=== PATIENT | female | born 1970 | race Caucasian/White ===

== ENCOUNTER 2017-01-02 08:55 | Emergency (ER) | payer OTHER ==
--- NOTE | 2017-01-02 10:34 | DIAGNOSTIC IMAGING REPORT ---
PROCEDURE: CT ABD/PELVIS WITH CONTRAST CLINICAL INDICATION: Right-sided abdominal pain, initial encounter TECHNIQUE: 100 ml of Isovue 300 were injected intravenously and axial images were obtained of the entire abdomen and pelvis with sagittal and coronal reformations. COMPARISON: CT abdomen/pelvis 07/30/2016. FINDINGS: ABDOMEN: Lung base are clear. Heart size is normal. Stable 6 mm hepatic cyst. Gallbladder, pancreas, spleen and right adrenal gland are normal. Stable 1.2 cm left adrenal nodule. Minor atherosclerosis of the aorta. Nonspecific bowel gas pattern. PELVIS: Short normal appendix versus appendiceal stump. Uterus, adnexa and bladder are normal. Trace free fluid the pelvis. Mild degenerative changes of the spine. IMPRESSION: 1. Stable 1.2 cm left adrenal nodule 2. Trace free fluid in the pelvis 3. Results discussed with Dr. Angelo All CT scans at this facility use dose modulation, iterative reconstruction, and/or weight-based dosing when appropriate to reduce radiation dose to as low as reasonably achievable.
--- NOTE | 2017-01-02 12:07 | ED ORDER SUMMARY ---
..... Patient: CYNTHIA BOOGIE OrderSheet [facility] VisitID: [id number] [address] [place] [address] 46y, F Registration Date/Time: 01/02/2017 ORDER SHEET Weight: 74.8 kg (stated) Allergies: Benadryl, Codeine, Toradol, Reglan (gets more nauseated) GENERAL ORDERS: UA-Culture if indicated Urgent (09:01/02/2017 SStone R.N. per protocol) (9:12 SStone R.N.) CT Abd/Pel w Cont (No) (N/A) Urgent (01/02/2017 Tutu BECKMAN) (Ack 9:29 LNations ER Tech1) (10:15 MCook R.N.) CBC w Diff Urgent (:01/02/2017 Tutu BECKMAN) (Ack 9:29 LNations ER Tech1) (9:36 SStone R.N.) CMP Urgent (:01/02/2017 Tutu BECKMAN) (Ack 9:29 LNations ER Tech1) (9:36 SStone R.N.) CRP Urgent (:01/02/2017 Tutu BECKMAN) (Ack 9:29 LNations ER Tech1) (9:36 SStone R.N.) D-Dimer Urgent (12:01/02/2017 Tutu BECKMAN) (Ack 12:09 LNations ER Tech1) MEDICATION ORDERS: Phenergan IV 12.5 mg (NOW) (:01/02/2017 Tutu BECKMAN) (9:39 MCook R.N.) IV FLUIDS: IV NS : initial bolus 500 mL (1000 mL/hr), then 250 mL/hr for 2h (NOW); Routine (01/02/2017 Tutu BECKMAN) (9:44 MCook R.N.) Dilaudid IV 0.5 mg (NOW) (01/02/2017 Tutu BECKMAN) (9:42 MCook R.N.) ORDER SHEET NOTES: [Electronically signed by Margaret Molina R.N. (12:01/02/2017)] [Electronically signed by Jonathan Angelo MD (20:41 01/04/2017)] [Electronically locked/signed by Margaret Molina R.N. (12:01/02/2017)]
--- NOTE | 2017-01-02 12:07 | ED ORDER SUMMARY ---
..... Patient: CYNHTIA BOOGIE OrderSheet [facility] VisitID: [id number] [address] [place] [address] 46y, F Registration Date/Time: 01/02/2017 ORDER SHEET Weight: 74.8 kg (stated) Allergies: Benadryl, Codeine, Toradol, Reglan (gets more nauseated) GENERAL ORDERS: UA-Culture if indicated Urgent (09:01/02/2017 SStone R.N. per protocol) (9:12 SStone R.N.) CT Abd/Pel w Cont (No) (N/A) Urgent (01/02/2017 Tutu BECKMAN) (Ack 9:29 LNations ER Tech1) (10:15 MCook R.N.) CBC w Diff Urgent (:01/02/2017 Tutu BECKMAN) (Ack 9:29 LNations ER Tech1) (9:36 SStone R.N.) CMP Urgent (:01/02/2017 Tutu BECKMAN) (Ack 9:29 LNations ER Tech1) (9:36 SStone R.N.) CRP Urgent (:01/02/2017 Tutu BECKMAN) (Ack 9:29 LNations ER Tech1) (9:36 SStone R.N.) D-Dimer Urgent (12:01/02/2017 Tutu BECKMAN) (Ack 12:09 LNations ER Tech1) MEDICATION ORDERS: Phenergan IV 12.5 mg (NOW) (:01/02/2017 Tutu BECKMAN) (9:39 MCook R.N.) IV FLUIDS: IV NS : initial bolus 500 mL (1000 mL/hr), then 250 mL/hr for 2h (NOW); Routine (01/02/2017 Tutu BECKMAN) (9:44 MCook R.N.) Dilaudid IV 0.5 mg (NOW) (01/02/2017 Tutu BECKMAN) (9:42 MCook R.N.) ORDER SHEET NOTES: [Electronically signed by Margaret Molina R.N. (12:01/02/2017)] [Electronically signed by Jonathan Angelo MD (20:41 01/04/2017)] [Electronically locked/signed by Margaret Molina R.N. (12:01/02/2017)]
--- NOTE | 2017-01-02 12:07 | ED CLINICAL REPORT ---
Clinical Report - Physicians/Mid Levels [facility] [address] [place] [address] 01/02/2017 8:57 Patient: CYNTHIA BOOGIE Time Seen: 09:18 Jan 02 2017. Arrived- By private vehicle. Historian- patient. CPT: ER phys charges level 4 (#[id number]). HISTORY OF PRESENT ILLNESS Chief Complaint: ABDOMINAL PAIN and FLANK PAIN. It is described as "pain" and sharp and it is described as located in the right flank. At its maximum, severity described as moderate. When seen in the E.D., severity described as moderate. Modifying factors- worsened by movement. Relieved by rest. This started about 1 weeks [place] [employer]; Onset. (Last ). She has had fever and nausea. ( Pt reports urinary incontinence on the way to the ED this morning. Pt thought she has been having sciatic pain the last 6 days. Pt also has a red rash to her left foot.) and is still present. No nausea, loss of appetite, vomiting or diarrhea. No recent travel. Similar symptoms previously: None. Recent medical care: Not recently seen/assessed. REVIEW OF SYSTEMS No constipation, black stools, hematemesis, difficulty with urination or pain with urination. No fever, sore throat, chest pain, difficulty breathing or cough. No joint pain, skin rash, chills or back pain. Recent 6 week cough illness. Over it at this point. All systems otherwise negative, except as recorded above. PAST HISTORY Tonsillectomy. ( R TKA). Medications: [place] Carbonate ER Oral. Topamax Oral. Ibuprofen. Allergies: Benadryl. Codeine. Toradol. SOCIAL HISTORY Heavy tobacco smoker (cigarette)- less than 1 pack per day. Occasional alcohol use. ADDITIONAL NOTES The nursing notes have been reviewed. PHYSICAL EXAM Vital Signs: 01/02/2017 09:04 BP: 143/92. HR: 78. RR: 20. O2 saturation: 97%. Temp: 98.9 F. Pain level now: 10/10. Appearance: Alert. No acute distress. Eyes: Eyes normal inspection. ENT: Pharynx normal. Neck: Normal inspection. CVS: Normal heart rate and rhythm. Heart sounds normal. Pulses normal. Respiratory: No respiratory distress. Breath sounds normal. Chest nontender. Abdomen: Soft and nontender. Back: Moderate CVA tenderness on the right. Skin: Skin warm. Normal skin color. No rash. Extremities: Extremities exhibit normal ROM. No lower extremity edema. Neuro: Oriented X 3. No motor deficit. No sensory deficit. Reflexes normal. LABS, X-RAYS, AND EKG Abdominal CT: Normal study. Normal aorta. Normal liver, spleen, pancreas and gallbladder. No mass. No free fluid. No bony lesion. Mild DJD in the spine. Abdominal CT performed with IV contrast. The study was interpreted by the radiologist and discussed with the radiologist. Laboratory Tests: UA-Culture if indicated: (МАРИНА: 01/02/2017 09:05) ( [facility] 01/02/2017 09:37) Final results Test Result Flag Units (Reference) URINE COLOR YELLOW URINE APPEARANCE CLEAR URINE GLUCOSE NEGATIVE (NEGATIVE) URINE BILIRUBIN NEGATIVE (NEGATIVE) URINE KETONE NEGATIVE (NEGATIVE) URINE SPECIFIC GRAVITY 1.010 (1.010-1.030) URINE PH 7.5 (5.0-8.0) URINE PROTEIN NEGATIVE (NEGATIVE) URINE UROBILINOGEN 0.2 EU/dL (0.2-1.0) URINE NITRITE NEGATIVE (NEGATIVE) URINE BLOOD NEGATIVE (NEGATIVE) URINE [place] ESTERASE NEGATIVE (NEGATIVE) URINE RBC NONE SEEN rbc/hpf (0-1) URINE WBC RARE wbc/hpf (0-1) URINE EPITHELIAL CELLS NONE SEEN EPI/hpf (0-5) URINE BACTERIA NONE SEEN (NONE SEEN) URINE COMMENT CULT NOT INDICATED URINE CULTURES ARE SET-UP BASED ON THE FOLLOWING CRITERIA:POSITIVE NITRITEPOSITIVE LEUKOCYTE ESTERASEGREATER THAN 10 WHITE BLOOD CELLSMODERATE (2+) OR GREATER BACTERIA CBC w Diff: (МАРИНА: 01/02/2017 09:05) ( [facility] 01/02/2017 09:34) Final results Test Result Flag Units (Reference) WHITE BLOOD COUNT 11.9 H K/uL (4.5-11.5) RED BLOOD COUNT 5.15 M/uL (4.00-5.20) HEMOGLOBIN 15.9 gm/dL (12.0-16.0) HEMATOCRIT 47.6 H % (36.0-46.0) MEAN CELL VOLUME 92 fL (80-100) MEAN CORPUSCULAR HGB 31 pg (26-34) MEAN CORPUSCULAR HGB CONC 34 g/dL (31-37) RED CELL DISTRIBUTION WIDTH 13.4 % (11.6-14.8) PLATELET COUNT 296 K/uL (150-400) NEUTROPHIL % 71.5 % (50-75) LYMPH % 19.2 L % (25-40) MONO % 5.6 % (3-14) EOSINOPHIL % 2.9 % (0-4) BASOPHIL % 0.8 % (0-2) [id number]: (МАРИНА: 01/02/2017 09:05) ( MsgRcvd 01/02/2017 12:15) Final results Test Result Flag Units (Reference) D-DIMER QUANTITATIVE 0.34 ug/mLFEU (0.27-0.52) The primary value of this quantitative assay relates toits negative predictive value (i.e. exclusion) of pulmonaryembolism/deep vein thrombosis/DIC.Elevated levels of d-dimer may also occur with:, age, cancer, inflammation, liver disease,post-op, infection, hematoma, coronary disease, peripheralarteriopathy, bleeding disorders and thrombolytic treatment.Results should be correlated with other clinical andradiological data.Testing Methodology: Latex Immunoassay CMP: (МАРИНА: 01/02/2017 09:05) ( PrgRcvd 01/02/2017 09:55) Final results Test Result Flag Units (Reference) GLUCOSE 105 mg/dL (70-110) BUN 13 mg/dL (7-18) CREATININE 0.9 mg/dL (0.6-1.3) Estimated GFR >60 mL/min Estimated GFR- >60 mL/min Note: Persistent reduction over 3 months in eGFR<60 mL/min/1.73 m2 defines CKD. Patients with eGFR values>=60 mL/min/1.73 m2 may also have CKD if evidence ofpersistent proteinuria. Additional information may be foundat www.kidney.org. SODIUM 141 mmol/L (136-145) POTASSIUM 4.3 mmol/L (3.5-5.1) CHLORIDE 107 mmol/L (98-107) CARBON DIOXIDE 25 mmol/L (21-32) CALCIUM 9.6 mg/dL (8.5-10.1) TOTAL PROTEIN 7.3 g/dL (6.4-8.2) ALBUMIN 4.0 g/dL (3.3-5.0) BILIRUBIN, TOTAL 0.3 mg/dL (0.0-1.0) ALKALINE PHOSPHATASE 60 U/L (46-116) AST (SGOT) 14 L U/L (15-37) ALT (SGPT) 24 U/L (12-78) C-REACTIVE PROTEIN < 0.2 mg/dL (0.0-0.9) . PROGRESS AND PROCEDURES Course of Care: IV NS Dilaudid 0.5 mg IV Phenergan 12.5 mg IV Patient is stable. Symptoms better. Patient/family counseled. Disposition: Discharged. Condition: stable. CLINICAL IMPRESSION Right flank pain that is musculoskeletal in origin. INSTRUCTIONS No strenuous activity. Do not work today, for one day until better. Drink plenty of fluids. Warnings: Further evaluation is necessary. Your Current Medications: CONTINUE TAKING THE FOLLOWING MEDICATIONS: Ibuprofen*. [place] Carbonate ER Oral. Topamax Oral. Prescription Medications: Hydrocodone/APAP 5mg/325mg: take 1 to 2 orally every 6 hours as needed for pain. Dispense fifteen (15). No refills. Flexeril 5 mg: take 1-2 orally every 8 hours as needed for muscle spasm or pain. Dispense fifteen (15). No refills. Substitution is permissible. OTC Medications: Take ibuprofen (Advil, Nuprin, etc.) according to label instructions. Available over the counter. Follow-up: Follow up with your doctor in one week. Call for an appointment. Understanding of the discharge instructions verbalized by patient. (Electronically signed by Jonathan Angelo MD 01/04/2017 20:41)
--- NOTE | 2017-01-02 12:07 | ED CLINICAL REPORT ---
Clinical Report - Physicians/Mid Levels [facility] [address] [place] [address] 01/02/2017 8:57 Patient: CYNTHIA BOOGIE Time Seen: 09:18 Jan 02 2017. Arrived- By private vehicle. Historian- patient. CPT: ER phys charges level 4 (#[id number]). HISTORY OF PRESENT ILLNESS Chief Complaint: ABDOMINAL PAIN and FLANK PAIN. It is described as "pain" and sharp and it is described as located in the right flank. At its maximum, severity described as moderate. When seen in the E.D., severity described as moderate. Modifying factors- worsened by movement. Relieved by rest. This started about 1 weeks [employer]; Onset. (Last ). She has had fever and nausea. ( Pt reports urinary incontinence on the way to the ED this morning. Pt thought she has been having sciatic pain the last 6 days. Pt also has a red rash to her left foot.) and is still present. No nausea, loss of appetite, vomiting or diarrhea. No recent travel. Similar symptoms previously: None. Recent medical care: Not recently seen/assessed. REVIEW OF SYSTEMS No constipation, black stools, hematemesis, difficulty with urination or pain with urination. No fever, sore throat, chest pain, difficulty breathing or cough. No joint pain, skin rash, chills or back pain. Recent 6 week cough illness. Over it at this point. All systems otherwise negative, except as recorded above. PAST HISTORY Tonsillectomy. ( R TKA). Medications: [place] Carbonate ER Oral. Topamax Oral. Ibuprofen. Allergies: Benadryl. Codeine. Toradol. SOCIAL HISTORY Heavy tobacco smoker (cigarette)- less than 1 pack per day. Occasional alcohol use. ADDITIONAL NOTES The nursing notes have been reviewed. PHYSICAL EXAM Vital Signs: 01/02/2017 09:04 BP: 143/92. HR: 78. RR: 20. O2 saturation: 97%. Temp: 98.9 F. Pain level now: 10/10. Appearance: Alert. No acute distress. Eyes: Eyes normal inspection. ENT: Pharynx normal. Neck: Normal inspection. CVS: Normal heart rate and rhythm. Heart sounds normal. Pulses normal. Respiratory: No respiratory distress. Breath sounds normal. Chest nontender. Abdomen: Soft and nontender. Back: Moderate CVA tenderness on the right. Skin: Skin warm. Normal skin color. No rash. Extremities: Extremities exhibit normal ROM. No lower extremity edema. Neuro: Oriented X 3. No motor deficit. No sensory deficit. Reflexes normal. LABS, X-RAYS, AND EKG Abdominal CT: Normal study. Normal aorta. Normal liver, spleen, pancreas and gallbladder. No mass. No free fluid. No bony lesion. Mild DJD in the spine. Abdominal CT performed with IV contrast. The study was interpreted by the radiologist and discussed with the radiologist. Laboratory Tests: UA-Culture if indicated: (МАРИНА: 01/02/2017 09:05) ( [facility] 01/02/2017 09:37) Final results Test Result Flag Units (Reference) URINE COLOR YELLOW URINE APPEARANCE CLEAR URINE GLUCOSE NEGATIVE (NEGATIVE) URINE BILIRUBIN NEGATIVE (NEGATIVE) URINE KETONE NEGATIVE (NEGATIVE) URINE SPECIFIC GRAVITY 1.010 (1.010-1.030) URINE PH 7.5 (5.0-8.0) URINE PROTEIN NEGATIVE (NEGATIVE) URINE UROBILINOGEN 0.2 EU/dL (0.2-1.0) URINE NITRITE NEGATIVE (NEGATIVE) URINE BLOOD NEGATIVE (NEGATIVE) URINE [place]UK ESTERASE NEGATIVE (NEGATIVE) URINE RBC NONE SEEN rbc/hpf (0-1) URINE WBC RARE wbc/hpf (0-1) URINE EPITHELIAL CELLS NONE SEEN EPI/hpf (0-5) URINE BACTERIA NONE SEEN (NONE SEEN) URINE COMMENT CULT NOT INDICATED URINE CULTURES ARE SET-UP BASED ON THE FOLLOWING CRITERIA:POSITIVE NITRITEPOSITIVE LEUKOCYTE ESTERASEGREATER THAN 10 WHITE BLOOD CELLSMODERATE (2+) OR GREATER BACTERIA CBC w Diff: (МАРИНА: 01/02/2017 09:05) ( [facility] 01/02/2017 09:34) Final results Test Result Flag Units (Reference) WHITE BLOOD COUNT 11.9 H K/uL (4.5-11.5) RED BLOOD COUNT 5.15 M/uL (4.00-5.20) HEMOGLOBIN 15.9 gm/dL (12.0-16.0) HEMATOCRIT 47.6 H % (36.0-46.0) MEAN CELL VOLUME 92 fL (80-100) MEAN CORPUSCULAR HGB 31 pg (26-34) MEAN CORPUSCULAR HGB CONC 34 g/dL (31-37) RED CELL DISTRIBUTION WIDTH 13.4 % (11.6-14.8) PLATELET COUNT 296 K/uL (150-400) NEUTROPHIL % 71.5 % (50-75) LYMPH % 19.2 L % (25-40) MONO % 5.6 % (3-14) EOSINOPHIL % 2.9 % (0-4) BASOPHIL % 0.8 % (0-2) [id number]: (МАРИНА: 01/02/2017 09:05) ( MsgRcvd 01/02/2017 12:15) Final results Test Result Flag Units (Reference) D-DIMER QUANTITATIVE 0.34 ug/mLFEU (0.27-0.52) The primary value of this quantitative assay relates toits negative predictive value (i.e. exclusion) of pulmonaryembolism/deep vein thrombosis/DIC.Elevated levels of d-dimer may also occur with:, age, cancer, inflammation, liver disease,post-op, infection, hematoma, coronary disease, peripheralarteriopathy, bleeding disorders and thrombolytic treatment.Results should be correlated with other clinical andradiological data.Testing Methodology: Latex Immunoassay CMP: (МАРИНА: 01/02/2017 09:05) ( MagRcvd 01/02/2017 09:55) Final results Test Result Flag Units (Reference) GLUCOSE 105 mg/dL (70-110) BUN 13 mg/dL (7-18) CREATININE 0.9 mg/dL (0.6-1.3) Estimated GFR >60 mL/min Estimated GFR- >60 mL/min Note: Persistent reduction over 3 months in eGFR<60 mL/min/1.73 m2 defines CKD. Patients with eGFR values>=60 mL/min/1.73 m2 may also have CKD if evidence ofpersistent proteinuria. Additional information may be foundat www.kidney.org. SODIUM 141 mmol/L (136-145) POTASSIUM 4.3 mmol/L (3.5-5.1) CHLORIDE 107 mmol/L (98-107) CARBON DIOXIDE 25 mmol/L (21-32) CALCIUM 9.6 mg/dL (8.5-10.1) TOTAL PROTEIN 7.3 g/dL (6.4-8.2) ALBUMIN 4.0 g/dL (3.3-5.0) BILIRUBIN, TOTAL 0.3 mg/dL (0.0-1.0) ALKALINE PHOSPHATASE 60 U/L (46-116) AST (SGOT) 14 L U/L (15-37) ALT (SGPT) 24 U/L (12-78) C-REACTIVE PROTEIN < 0.2 mg/dL (0.0-0.9) . PROGRESS AND PROCEDURES Course of Care: IV NS Dilaudid 0.5 mg IV Phenergan 12.5 mg IV Patient is stable. Symptoms better. Patient/family counseled. Disposition: Discharged. Condition: stable. CLINICAL IMPRESSION Right flank pain that is musculoskeletal in origin. INSTRUCTIONS No strenuous activity. Do not work today, for one day until better. Drink plenty of fluids. Warnings: Further evaluation is necessary. Your Current Medications: CONTINUE TAKING THE FOLLOWING MEDICATIONS: Ibuprofen*. [place] Carbonate ER Oral. Topamax Oral. Prescription Medications: Hydrocodone/APAP 5mg/325mg: take 1 to 2 orally every 6 hours as needed for pain. Dispense fifteen (15). No refills. Flexeril 5 mg: take 1-2 orally every 8 hours as needed for muscle spasm or pain. Dispense fifteen (15). No refills. Substitution is permissible. OTC Medications: Take ibuprofen (Advil, Nuprin, etc.) according to label instructions. Available over the counter. Follow-up: Follow up with your doctor in one week. Call for an appointment. Understanding of the discharge instructions verbalized by patient. (Electronically signed by Jonathan Angelo MD 01/04/2017 20:41)
--- NOTE | 2017-01-02 12:07 | ED NURSING NOTES ---
Clinical Report - Nurses [facility] [address] [place] [address] 01/02/2017 8:57 Patient: CYNTHIA BOOGIE TRIAGE Triage time 09:04 Jan 02 2017. Acuity: LEVEL 3. Chief Complaint: ABDOMINAL PAIN and NAUSEA. SEPSIS SCREEN: Sepsis Screen. Negative (no infection suspected/documented). --09:12 Evan Figueredo R.N. 09:04 01/02/17. BP: 143/92. HR: 78. RR: 20. O2 saturation: 97% on room air. Temp: 98.9 F. Pain level now: 08/27. --09:12 Evan Figueredo R.N. Weight: 74.8 kg stated. Height/Length: 68 inches Per Patient. BMI: 25.1. --09:04 Evan Figueredo R.N. Medications Ibuprofen. --09:06 Evan Figueredo R.N. [place] Carbonate ER Oral. Topamax Oral. --09:10 Evan Figueredo R.N. Medication/allergy information source: the patient. --09:12 Evan Figueredo R.N. Allergies Benadryl. --09:07 Evan Figueredo R.N. Codeine. --09:07 Evan Figueredo R.N. Toradol. --09:07 Evan Figueredo R.N. Reglan (gets more nauseated). --09:49 Evan Figueredo R.N. History Arrived by private vehicle. Historian: patient. Onset. (Last ). She has had fever and nausea. ( Pt reports urinary incontinence on the way to the ED this morning. Pt thought she has been having sciatic pain the last 6 days. Pt also has a red rash to her left foot.). No vomiting. PAST MEDICAL HX: No history of diabetes mellitus. Immunizations: up-to-date. SURGERY HX: Tonsillectomy. ( R TKA). SOCIAL HX: Current every day heavy tobacco smoker- less than 1 pack per day. Occasional alcohol use. Last drink was 4 days ago. No recent travel. No infectious disease exposure. No known contact with a sick individual. ABUSE ASSESSMENT: No report of abuse. FALL RISK ASSESSMENT: Fall risk assessment completed. No fall risk identified. NUTRITIONAL RISK ASSESSMENT: The nutritional risk assessment revealed no deficiencies. FUNCTIONAL ASSESSMENT: Functional assessment: no impairments noted. LEARNING NEEDS ASSESSMENT: The learning needs assessment revealed no barriers. SKIN INTEGRITY ASSESSMENT: Skin integrity risk assessment completed. No skin integrity risk identified. --09:12 Evan Figueredo R.N. Interventions ID band on patient. To treatment room. --09:12 Evan Figueredo R.N. PHYSICAL ASSESSMENT ( Pt reports 65 lb weight loss after R TKA.). GENERAL / NEURO / PSYCH: Alert. Oriented X 4. Appears in pain and in distress. RESPIRATORY: Mild respiratory distress. CVS: Capillary refill less than 2 seconds. GI / : The patient has had nausea. Abdominal distention (bloating). Abdomen soft. Bowel sounds within normal limits. No diarrhea. No blood in the stool. SKIN: Skin is warm. --09:15 Evan Figueredo R.N. ( Pt reports increase in urinary frequency and amount. Had an episode of incontinence on the way to hospital this morning. Denies blood in the stool or urine, reports decreased pain after she urinates.). --09:15 Evan Figueredo R.N. NURSING PROGRESS NOTES 09:36 01/02/17. BP: 154/107. HR: 66. RR: 22. O2 saturation: 94% on room air. Pain level now: 08/27. --09:38 Evan Figueredo R.N. 09:39 01/02/2017 Site #1 started via IV in the right antecubital space with an 20g angiocath; one attempt. Blood drawn: rainbow set. Labeled in the presence of the patient and sent to the lab. Saline lock flushed with 10 mL saline. --09:39 Evan Figueredo R.N. 09:39 01/02/2017 PHENERGAN (Promethazine HCl) IVP 12.5 mg given. via site #1. Allergies verified and confirmed 5 rights. IV patency established. IV site checked: no pain, redness, or swelling. IV flushed thoroughly pre- and post-medication administration. IVP given by RN. --09:39 Evan Figueredo R.N. 09:42 01/02/2017 Dilaudid (HYDROmorphone HCl PF) IVP 0.5 mg given. via site #1. Allergies verified, confirmed 5 rights and sedative warning given to the patient. IV patency established. IV site checked: no pain, redness, or swelling. IV flushed thoroughly pre- and post-medication administration. IVP given by RN. --09:42 Evan Figueredo R.N. 09:44 01/02/2017 Started bag #1 1000 mL IV Fluids IV NS (Saline); bolus of 500 mL over 30 minute(s) via site #1 via IV pump. Allergies verified and confirmed 5 rights. IV patency established. IV site checked: no pain, redness, or swelling. IV flushed thoroughly pre- and post-medication administration. --09:44 Evan Figueredo R.N. Monitoring of patient in place. Patient gowned. Reassurance given. Two patient identifiers checked. Call light placed in reach. Bed placed in lowest position. --09:46 Evan Figueredo R.N. Patient returned from radiology by stretcher with tech. --10:15 Evan Figueredo R.N. 10:35 01/02/2017 PHENERGAN IVP Response: no adverse reaction symptoms have improved the patient feels better. --10:35 Evan Figueredo R.N. 10:47 01/02/2017 Dilaudid IVP Response: no adverse reaction pain is improving. Symptoms are the same. The patient feels the same. --10:47 Evan Figueredo R.N. 10:47 01/02/2017 IV Fluids IV NS via IV site #1 Rate Changed: bag #1 decreased to 250 mL/hr via IV pump. IV patency established. IV site checked: no pain, redness, or swelling. IV flushed thoroughly. Confirmed 5 Rights. --10:47 Evan Figueredo R.N. 11:12 01/02/17. BP: 140/57. HR: 58. RR: 18. O2 saturation: 99% on room air. Pain level now: 06/27. --11:15 Evan Figueredo R.N. ( Patient is trying to rest but reports her pain is slowly increasing, no nausea. Will notify MD.). --11:15 Evan Figueredo R.N. 12:26 01/02/2017 IV Fluids IV NS Discontinued: bag #1 discontinued upon discharge. Total amount infused: 800 mL. IV patency established. IV site checked: no pain, redness, or swelling. IV flushed thoroughly. --12:26 Margaret Molina R.N. DISPOSITION / DISCHARGE 12:20 01/02/2017 Site #1 removed upon discharge. Pressure dressing applied. --12:20 Margaret Molina R.N. Departure time: 12:21. Discharge instructions provided and reviewed with the patient. Reviewed warnings. Reviewed medication(s) side effects information. Prescription(s) given to the patient. Patient verbalized understanding. Written instructions provided in German. The patient was discharged home and accompanied by spouse. She left the Emergency Department ambulatory and via private vehicle. Spouse driving. --12:21 Margaret Molina R.N. 12:20 01/02/17. BP: 133/72. HR: 51. RR: 18. O2 saturation: 98%. Temp: 98.3 F. Pain level now: 04/27. --12:21 Margaret Molina R.N. Locked/Released at 01/02/2017 12:27 by Margaret Molina R.N.
--- NOTE | 2017-01-04 20:41 | ED DISCHARGE INSTRUCTIONS ---
Patient: CYNTHIA BOOGIE General Instructions [facility] VisitID: [id number] [address] [place] [address] 46y, F Registration Date/Time: 01/02/2017 Right flank pain that is musculoskeletal in origin. INSTRUCTIONS No strenuous activity. Do not work today, for one day until better. Drink plenty of fluids. Warnings: Further evaluation is necessary. Your Current Medications: CONTINUE TAKING THE FOLLOWING MEDICATIONS: Ibuprofen*. [place] Carbonate ER Oral. Topamax Oral. Prescription Medications: Hydrocodone/APAP 5mg/325mg: take 1 to 2 orally every 6 hours as needed for pain. Dispense fifteen (15). No refills. Flexeril 5 mg: take 1-2 orally every 8 hours as needed for muscle spasm or pain. Dispense fifteen (15). No refills. Substitution is permissible. OTC Medications: Take ibuprofen (Advil, Nuprin, etc.) according to label instructions. Available over the counter. Follow-up: Follow up with your doctor in one week. Call for an appointment. Understanding of the discharge instructions verbalized by patient. ADDITIONAL INFORMATION Cyclobenzaprine Hydrochloride Oral tablet What is this medicine? CYCLOBENZAPRINE (syjonh harrison) is a muscle relaxer. It is used to treat muscle pain, spasms, and stiffness. How should I use this medicine? Take this medicine by mouth with a glass of water. Follow the directions on the prescription label. If this medicine upsets your stomach, take it with food or milk. Take your medicine at regular intervals. Do not take it more often than directed. Talk to your student counsellor regarding the use of this medicine in children. Special care may be needed. What side effects may I notice from receiving this medicine? Side effects that you should report to your doctor or health managed care analyst as soon as possible: allergic reactions like skin rash, itching or hives, swelling of the face, lips, or tongue chest pain fast heartbeat hallucinations seizures vomiting Side effects that usually do not require medical attention (report to your doctor or health managed care analyst if they continue or are bothersome): headache What may interact with this medicine? Do not take this medicine with any of the following medications: cisapride droperidol flecainide grepafloxacin halofantrine levomethadyl MAOIs like Carbex, Eldepryl, Marplan, Nardil, and Parnate nilotinib pimozide probucol sertindole This medicine may also interact with the following medications: abarelix alcohol contrast dyes dolasetron guanethidine medicines for cancer medicines for depression, anxiety, or psychotic disturbances medicines to treat an irregular heartbeat medicines used for sleep or numbness during surgery or procedure methadone octreotide ondansetron palonosetron phenothiazines like chlorpromazine, mesoridazine, prochlorperazine, thioridazine some medicines for infection like alfuzosin, chloroquine, clarithromycin, levofloxacin, mefloquine, pentamidine, troleandomycin tramadol vardenafil What if I miss a dose? If you miss a dose, take it as soon as you can. If it is almost time for your next dose, take only that dose. Do not take double or extra doses. Where should I keep my medicine? Keep out of the reach of children. Store at room temperature between 15 and 30 degrees C (59 and 86 degrees F). Keep container tightly closed. Throw away any unused medicine after the expiration date. What should I tell my health care provider before I take this medicine? They need to know if you have any of these conditions: heart disease, irregular heartbeat, or previous heart attack liver disease thyroid problem an unusual or allergic reaction to cyclobenzaprine, tricyclic antidepressants, lactose, other medicines, foods, dyes, or preservatives or trying to get breast-feeding What should I watch for while using this medicine? Check with your doctor or health managed care analyst if your condition does not improve within 1 to 3 weeks. You may get drowsy or dizzy when you first start taking the medicine or change doses. Do not drive, use machinery, or do anything that may be dangerous until you know how the medicine affects you. Stand or sit up slowly. Your mouth may get dry. Drinking water, chewing sugarless gum, or sucking on hard candy may help. You have been given the following additional information: Cyclobenzaprine Hydrochloride Oral tablet No strenuous activity. Do not work today, for one day until better. (Electronically signed by Jonathan Angelo MD 01/04/2017 20:41)
--- NOTE | 2017-01-04 20:41 | ED MAR SUMMARY ---
..... Medication Administration Record [address] [place] [address] Patient: CYNTHIA BOOGIE Visit ID: [id number] 46y, F Weight: 74.8 kg Height/Length: 68 in BMI: 25.1 ALLERGIES: Toradol, Codeine, Benadryl, Reglan (gets more nauseated) Given 09:39 01/02/2017 Evan Figueredo R.N. Medication Administered: PHENERGAN [IVP] (PROMETHAZINE HCL), Dose: 12.5 mg IVP, Site: #1 right AC. Medication Ordered: Phenergan IV 12.5 mg (NOW). Given 09:42 01/02/2017 Evan Figueredo R.N. Medication Administered: DILAUDID [IVP] (HYDROMORPHONE HCL PF), Dose: 0.5 mg IVP, Site: #1 right AC. Medication Ordered: Dilaudid IV 0.5 mg (NOW). Start 09:44 01/02/2017 Evan Figueredo R.N., Stop 12:26 01/02/2017 Margaret Molina R.N. Medication Administered: IV NS (SALINE), Dose: IV Fluids, Bolus: 500 mL over 30 minute(s), Dispensed: 1000 mL bag, Site: #1 right AC. Medication Ordered: IV NS : initial bolus 500 mL (1000 mL/hr), then 250 mL/hr for 2h (NOW); Routine.
--- NOTE | 2017-01-04 20:41 | ED MED RECONCILIATION SUMMARY ---
Patient: CYNTHIA BOOGIE Medication Reconciliation Report [facility] VisitID: [id number] [address] [place] [address] 46y, F Registration Date/Time: 01/02/2017 Weight: 74.8 kg Height/Length: 68 in. BMI: 25.1 ALLERGIES: Benadryl, Codeine, Reglan (gets more nauseated), Toradol The patient's Home Medications are listed below: CONTINUE TAKING THE FOLLOWING MEDICATIONS: Ibuprofen [place] Carbonate ER Oral Topamax Oral The source(s) of the original Home Medication information: patient The following Medications were given to the patient in the Emergency Department: PHENERGAN [IVP] IVP 12.5 mg, administered: 01/02/2017 9:39:00 AM Dilaudid [IVP] IVP 0.5 mg, administered: 01/02/2017 9:42:00 AM IV NS IV Fluids bolus 500 mL over 30 minute(s), administered: 01/02/2017 9:44:00 AM The following Medications were prescribed to the patient: Take ibuprofen (Advil, Nuprin, etc.) according to label instructions. Available over the counter. -- Jonathan Angelo MD Hydrocodone/APAP 5mg/325mg: take 1 to 2 orally every 6 hours as needed for pain. Dispense fifteen (15). No refills. -- Jonathan Angelo MD Flexeril 5 mg: take 1-2 orally every 8 hours as needed for muscle spasm or pain. Dispense fifteen (15). No refills. Substitution is permissible. -- Jonathan Angelo MD
--- NOTE | 2017-01-04 20:41 | ED DISCHARGE INSTRUCTIONS ---
Patient: CYNTHIA BOOGIE General Instructions [facility] VisitID: [id number] [address] [place] [address] 46y, F Registration Date/Time: 01/02/2017 Right flank pain that is musculoskeletal in origin. INSTRUCTIONS No strenuous activity. Do not work today, for one day until better. Drink plenty of fluids. Warnings: Further evaluation is necessary. Your Current Medications: CONTINUE TAKING THE FOLLOWING MEDICATIONS: Ibuprofen*. [place] Carbonate ER Oral. Topamax Oral. Prescription Medications: Hydrocodone/APAP 5mg/325mg: take 1 to 2 orally every 6 hours as needed for pain. Dispense fifteen (15). No refills. Flexeril 5 mg: take 1-2 orally every 8 hours as needed for muscle spasm or pain. Dispense fifteen (15). No refills. Substitution is permissible. OTC Medications: Take ibuprofen (Advil, Nuprin, etc.) according to label instructions. Available over the counter. Follow-up: Follow up with your doctor in one week. Call for an appointment. Understanding of the discharge instructions verbalized by patient. ADDITIONAL INFORMATION Cyclobenzaprine Hydrochloride Oral tablet What is this medicine? CYCLOBENZAPRINE (syjonh harrison) is a muscle relaxer. It is used to treat muscle pain, spasms, and stiffness. How should I use this medicine? Take this medicine by mouth with a glass of water. Follow the directions on the prescription label. If this medicine upsets your stomach, take it with food or milk. Take your medicine at regular intervals. Do not take it more often than directed. Talk to your education sales consultant regarding the use of this medicine in children. Special care may be needed. What side effects may I notice from receiving this medicine? Side effects that you should report to your doctor or health health care analyst as soon as possible: allergic reactions like skin rash, itching or hives, swelling of the face, lips, or tongue chest pain fast heartbeat hallucinations seizures vomiting Side effects that usually do not require medical attention (report to your doctor or health health care analyst if they continue or are bothersome): headache What may interact with this medicine? Do not take this medicine with any of the following medications: cisapride droperidol flecainide grepafloxacin halofantrine levomethadyl MAOIs like Carbex, Eldepryl, Marplan, Nardil, and Parnate nilotinib pimozide probucol sertindole This medicine may also interact with the following medications: abarelix alcohol contrast dyes dolasetron guanethidine medicines for cancer medicines for depression, anxiety, or psychotic disturbances medicines to treat an irregular heartbeat medicines used for sleep or numbness during surgery or procedure methadone octreotide ondansetron palonosetron phenothiazines like chlorpromazine, mesoridazine, prochlorperazine, thioridazine some medicines for infection like alfuzosin, chloroquine, clarithromycin, levofloxacin, mefloquine, pentamidine, troleandomycin tramadol vardenafil What if I miss a dose? If you miss a dose, take it as soon as you can. If it is almost time for your next dose, take only that dose. Do not take double or extra doses. Where should I keep my medicine? Keep out of the reach of children. Store at room temperature between 15 and 30 degrees C (59 and 86 degrees F). Keep container tightly closed. Throw away any unused medicine after the expiration date. What should I tell my health care provider before I take this medicine? They need to know if you have any of these conditions: heart disease, irregular heartbeat, or previous heart attack liver disease thyroid problem an unusual or allergic reaction to cyclobenzaprine, tricyclic antidepressants, lactose, other medicines, foods, dyes, or preservatives or trying to get breast-feeding What should I watch for while using this medicine? Check with your doctor or health health care analyst if your condition does not improve within 1 to 3 weeks. You may get drowsy or dizzy when you first start taking the medicine or change doses. Do not drive, use machinery, or do anything that may be dangerous until you know how the medicine affects you. Stand or sit up slowly. Your mouth may get dry. Drinking water, chewing sugarless gum, or sucking on hard candy may help. You have been given the following additional information: Cyclobenzaprine Hydrochloride Oral tablet No strenuous activity. Do not work today, for one day until better. (Electronically signed by Jonathan Angelo MD 01/04/2017 20:41)
--- NOTE | 2017-01-04 20:41 | ED MAR SUMMARY ---
..... Medication Administration Record [facility] [address] [place] [address] Patient: CYNTHIA BOOGIE Visit ID: [id number] 46y, F Weight: 74.8 kg Height/Length: 68 in BMI: 25.1 ALLERGIES: Toradol, Codeine, Benadryl, Reglan (gets more nauseated) Given 09:39 01/02/2017 Evan Figueredo R.N. Medication Administered: PHENERGAN [IVP] (PROMETHAZINE HCL), Dose: 12.5 mg IVP, Site: #1 right AC. Medication Ordered: Phenergan IV 12.5 mg (NOW). Given 09:42 01/02/2017 Evan Figueredo R.N. Medication Administered: DILAUDID [IVP] (HYDROMORPHONE HCL PF), Dose: 0.5 mg IVP, Site: #1 right AC. Medication Ordered: Dilaudid IV 0.5 mg (NOW). Start 09:44 01/02/2017 Evan Figueredo R.N., Stop 12:26 01/02/2017 Margaret Molina R.N. Medication Administered: IV NS (SALINE), Dose: IV Fluids, Bolus: 500 mL over 30 minute(s), Dispensed: 1000 mL bag, Site: #1 right AC. Medication Ordered: IV NS : initial bolus 500 mL (1000 mL/hr), then 250 mL/hr for 2h (NOW); Routine.
--- NOTE | 2017-01-04 20:41 | ED MED RECONCILIATION SUMMARY ---
Patient: CYNTHIA BOOGIE Medication Reconciliation Report [facility] VisitID: [id number] [address] [place] [address] 46y, F Registration Date/Time: 01/02/2017 Weight: 74.8 kg Height/Length: 68 in. BMI: 25.1 ALLERGIES: Benadryl, Codeine, Reglan (gets more nauseated), Toradol The patient's Home Medications are listed below: CONTINUE TAKING THE FOLLOWING MEDICATIONS: Ibuprofen [place] Carbonate ER Oral Topamax Oral The source(s) of the original Home Medication information: patient The following Medications were given to the patient in the Emergency Department: PHENERGAN [IVP] IVP 12.5 mg, administered: 01/02/2017 9:39:00 AM Dilaudid [IVP] IVP 0.5 mg, administered: 01/02/2017 9:42:00 AM IV NS IV Fluids bolus 500 mL over 30 minute(s), administered: 01/02/2017 9:44:00 AM The following Medications were prescribed to the patient: Take ibuprofen (Advil, Nuprin, etc.) according to label instructions. Available over the counter. -- Jonathan Angelo MD Hydrocodone/APAP 5mg/325mg: take 1 to 2 orally every 6 hours as needed for pain. Dispense fifteen (15). No refills. -- Jonathan Angelo MD Flexeril 5 mg: take 1-2 orally every 8 hours as needed for muscle spasm or pain. Dispense fifteen (15). No refills. Substitution is permissible. -- Jonathan Angelo MD
== END 2017-01-02 12:27 | disposition home or self-care (01) ==
LOC: ED SRH 08:55
DX: R10.9 Unspecified abdominal pain (principal); F17.210 Nicotine dependence, cigarettes, uncomplicated; Z88.8 Allergy status to other drugs, medicaments and biological substances; Z88.5 Allergy status to narcotic agent
CPT/HCPCS: 90004; 90100; 91556; 91585; 95059

== ENCOUNTER 2017-01-21 12:37 | Emergency (ER) | payer OTHER ==
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
--- NOTE | 2017-01-21 15:45 | ED ORDER SUMMARY ---
..... Patient: CYNTHIA BOOGIE OrderSheet [facility] VisitID: [id number] [address] [place] [address] 46y, F Registration Date/Time: 01/21/2017 ORDER SHEET Weight: 75.7 kg (stated) Allergies: Benadryl, Codeine, Reglan (gets more nauseated), Toradol GENERAL ORDERS: UA-Culture if indicated Urgent (13:14 01/21/2017 DDean R.N. per protocol) (Ack 13:[facility]) (13:35 DDean R.N.) CBC w Diff Urgent (13:14 01/21/2017 DDean R.N. per protocol) (Ack 13:23 KHoerner) (13:35 DDean R.N.) BMP Urgent (13:14 01/21/2017 DDean R.N. per protocol) (Ack 13:23 ANNMARIEoerner) (13:35 DDean R.N.) MEDICATION ORDERS: IV FLUIDS: IV Saline Lock (13:14 01/21/2017 DDean R.N. per protocol) (Ack 13:14 DDean R.N.) (13:17 DDean R.N.) IV NS : initial bolus 1000 mL (1000 mL/hr), then none - (NOW) (13:40 01/21/2017 HBivens A.R.N.P.) (14:03 DDean R.N.) Zofran IV 4 mg (NOW) (13:40 01/21/2017 HBivens A.R.N.P.) (14:03 DDean R.N.) ORDER SHEET NOTES: [Electronically signed by Janet Tijerina.R.N.PCathleen (16:48 01/21/2017)] [Electronically signed by Tayler Archer R.N. (17:02 01/21/2017)] [Electronically locked/signed by Tayler Archer R.N. (17:02 01/21/2017)]
--- NOTE | 2017-01-21 15:45 | ED ORDER SUMMARY ---
..... Patient: CYNTHIA BOOGIE OrderSheet [facility] VisitID: [id number] [address] [place] [address] 46y, F Registration Date/Time: 01/21/2017 ORDER SHEET Weight: 75.7 kg (stated) Allergies: Benadryl, Codeine, Reglan (gets more nauseated), Toradol GENERAL ORDERS: UA-Culture if indicated Urgent (13:14 01/21/2017 DDean R.N. per protocol) (Ack 13:23 [facility]) (13:35 DDean R.N.) CBC w Diff Urgent (13:14 01/21/2017 DDean R.N. per protocol) (Ack 13:23 KHoerner) (13:35 DDean R.N.) BMP Urgent (13:14 01/21/2017 DDean R.N. per protocol) (Ack 13:23 ANNMARIEoerner) (13:35 DDean R.N.) MEDICATION ORDERS: IV FLUIDS: IV Saline Lock (13:14 01/21/2017 DDean R.N. per protocol) (Ack 13:14 DDean R.N.) (13:17 DDean R.N.) IV NS : initial bolus 1000 mL (1000 mL/hr), then none - (NOW) (13:40 01/21/2017 HBivens A.R.N.P.) (14:03 DDean R.N.) Zofran IV 4 mg (NOW) (13:40 01/21/2017 HBivens A.R.N.P.) (14:03 DDean R.N.) ORDER SHEET NOTES: [Electronically signed by Janet Tijerina.R.N.PCathleen (16:48 01/21/2017)] [Electronically signed by Tayler Archer R.N. (17:02 01/21/2017)] [Electronically locked/signed by Tayler Archer R.N. (17:02 01/21/2017)]
--- NOTE | 2017-01-21 17:02 | ED MAR SUMMARY ---
..... Medication Administration Record [facility] [address] [place] [address] Patient: CYNTHIA BOOGIE Visit ID: [id number] 46y, F Weight: 75.7 kg Height/Length: 68.5 in BMI: 25 ALLERGIES: Benadryl, Codeine, Toradol, Reglan (gets more nauseated) Start 13:53 01/21/2017 Tayler Archer R.N., Stop 15:00 01/21/2017 Tayler Archer R.N. Medication Administered: IV NS (SALINE), Dose: IV Fluids over 1 minute(s), Rate: 1000 mL/hr, Dispensed: 1000 mL bag, Site: #1 forearm. Medication Ordered: IV NS : initial bolus 1000 mL (1000 mL/hr), then none - (NOW). Given 13:53 01/21/2017 Tayler Archer R.N. Medication Administered: ZOFRAN [IVP] (ONDANSETRON HCL), Dose: 4 mg IVP over 1 minute(s), Site: #1 forearm. Medication Ordered: Zofran IV 4 mg (NOW).
--- NOTE | 2017-01-21 17:02 | ED MED RECONCILIATION SUMMARY ---
Patient: CYNTHIA BOOGIE Medication Reconciliation Report [facility] VisitID: [id number] [address] [place] [address] 46y, F Registration Date/Time: 01/21/2017 Weight: 75.7 kg Height/Length: (not available) BMI: 25.0 ALLERGIES: Benadryl, Codeine, Reglan (gets more nauseated), Toradol The patient's Home Medications are listed below: THE FOLLOWING MEDICATIONS NEED TO BE RECONCILED: Ibuprofen Motrin at [facility] about 11:30 The source(s) of the original Home Medication information: Not obtained. The following Medications were given to the patient in the Emergency Department: Zofran [IVP] IVP 4 mg, administered: 01/21/2017 1:53:00 PM IV NS IV Fluids bolus 0, then 1000 mL/hr, administered: 01/21/2017 1:53:00 PM The following Medications were prescribed to the patient: Zofran 4 mg: Take 1 orally every six hours as needed for nausea/vomiting. Dispense ten (10). No refills. Substitution is permissible. -- Janet Tijerina A.R.N.P. [place] 5 mg / 325 mg tablets: take 1 orally every 6 hours. Dispense five (5). No refill. -- Janet Tijerina A.R.N.P.
--- NOTE | 2017-01-21 17:02 | ED MED RECONCILIATION SUMMARY ---
Patient: CYNTHIA BOOGIE Medication Reconciliation Report [facility] VisitID: [id number] [address] [place] [address] 46y, F Registration Date/Time: 01/21/2017 Weight: 75.7 kg Height/Length: (not available) BMI: 25.0 ALLERGIES: Benadryl, Codeine, Reglan (gets more nauseated), Toradol The patient's Home Medications are listed below: THE FOLLOWING MEDICATIONS NEED TO BE RECONCILED: Ibuprofen Motrin at [facility] about 11:30 The source(s) of the original Home Medication information: Not obtained. The following Medications were given to the patient in the Emergency Department: Zofran [IVP] IVP 4 mg, administered: 01/21/2017 1:53:00 PM IV NS IV Fluids bolus 0, then 1000 mL/hr, administered: 01/21/2017 1:53:00 PM The following Medications were prescribed to the patient: Zofran 4 mg: Take 1 orally every six hours as needed for nausea/vomiting. Dispense ten (10). No refills. Substitution is permissible. -- Janet Tijerina A.R.N.P. [place] 5 mg / 325 mg tablets: take 1 orally every 6 hours. Dispense five (5). No refill. -- Janet Tijerina A.R.N.P.
--- NOTE | 2017-01-21 17:02 | ED DISCHARGE INSTRUCTIONS ---
Patient: CYNTHIA BOOGIE General Instructions [facility] VisitID: [id number] [address] [place] [address] 46y, F Registration Date/Time: 01/21/2017 Acute right flank pain INSTRUCTIONS Warnings: GENERAL WARNINGS: Return or contact your physician immediately if your condition worsens or changes unexpectedly, if not improving as expected, or if other problems arise. SPECIFICALLY, return if you develop pain in the abdomen or pelvis, fever, the inability to keep fluids down, blood in vomitus, blood in diarrhea, fainting or lightheadedness. Prescription Medications: Zofran 4 mg: Take 1 orally every six hours as needed for nausea/vomiting. Dispense ten (10). No refills. Substitution is permissible. [place] 5 mg / 325 mg tablets: take 1 orally every 6 hours. Dispense five (5). No refill. Follow-up: Follow up with your doctor tomorrow as scheduled even if well. Summary of care provided to patient and family. Understanding of the discharge instructions verbalized by patient. ADDITIONAL INFORMATION Flank Pain[Uncertain Cause] The flank is the area between the upper abdomen and the back. Pain here is often related to the kidneyan infection or a kidney stone. Other causes of flank pain include spinal arthritis, pinched nerve from a disk injury, back muscle strain or spasm. The cause of your flank pain is not certain and further tests may be needed. Home Care: You may use acetaminophen (Tylenol) or ibuprofen (Motrin, Advil) to control pain, unless another medicine was prescribed. [NOTE: If you have chronic liver or kidney disease or ever had a stomach ulcer or GI bleeding, talk with your doctor before using these medicines.] If the cause of your pain is coming from the muscles, ice or heat may give relief. During the first two days after injury, apply an ICE PACK to the painful area for 20 minutes every 2-4 hours. This will reduce swelling and pain. HEAT (hot shower, hot bath or heating pad) works well for muscle spasm. You can start with ice, then switch to heat after two days. Some patients feel best alternating ice and heat treatments. Use the one method that feels the best to you. Follow Up with your doctor or as advised by our staff for further evaluation if your symptoms are not improving over the next few days. Return Promptly or contact your doctor if any of the following occur: Repeated vomiting Fever of 100.4F (38C) or higher, or as directed by your healthcare provider Increasing flank pain Pain that spreads to the front of the abdomen Dizziness, weakness or fainting Blood in your urine Burning with urination or frequent urination Increasing pain in the leg Numbness or weakness in the leg Ondansetron Oral disintegrating tablet What is this medicine? ONDANSETRON (on NIKKIE se harpreet) is used to treat nausea and vomiting caused by chemotherapy. It is also used to prevent or treat nausea and vomiting after surgery. How should I use this medicine? These tablets are made to dissolve in the mouth. Do not try to push the tablet through the foil backing. With dry hands, peel away the foil backing and gently remove the tablet. Place the tablet in the mouth and allow it to dissolve, then swallow. While you may take these tablets with water, it is not necessary to do so. Talk to your blocker hand regarding the use of this medicine in children. Special care may be needed. What side effects may I notice from receiving this medicine? Side effects that you should report to your doctor or health pulmonary care nurse as soon as possible: allergic reactions like skin rash, itching or hives, swelling of the face, lips, or tongue breathing problems dizziness fast or irregular heartbeat feeling faint or lightheaded, falls fever and chills swelling of the hands and feet tightness in the chest Side effects that usually do not require medical attention (report to your doctor or health pulmonary care nurse if they continue or are bothersome): constipation or diarrhea headache What may interact with this medicine? Do not take this medicine with any of the following medications: -apomorphine -cisapride -dofetilide -dronedarone -pimozide -thioridazine -ziprasidone This medicine may also interact with the following medications: -carbamazepine -phenytoin -rifampicin -tramadol -other medicines that prolong the QT interval (cause an abnormal heart rhythm) What if I miss a dose? If you miss a dose, take it as soon as you can. If it is almost time for your next dose, take only that dose. Do not take double or extra doses. Where should I keep my medicine? Keep out of the reach of children. Store between 2 and 30 degrees C (36 and 86 degrees F). Throw away any unused medicine after the expiration date. What should I tell my health care provider before I take this medicine? They need to know if you have any of these conditions: heart disease history of irregular heartbeat liver disease low levels of magnesium or potassium in the blood an unusual or allergic reaction to ondansetron, granisetron, other medicines, foods, dyes, or preservatives or trying to get breast-feeding What should I watch for while using this medicine? Check with your doctor or health pulmonary care nurse as soon as you can if you have any sign of an allergic reaction. Hydrocodone Bitartrate, Acetaminophen Oral tablet What is this medicine? ACETAMINOPHEN; HYDROCODONE (a set a MORGAN jerome fen; glo droe KOE done) is a pain reliever. It is used to treat mild to moderate pain. How should I use this medicine? Take this medicine by mouth. Swallow it with a full glass of water. Follow the directions on the prescription label. If the medicine upsets your stomach, take the medicine with food or milk. Do not take more than you are told to take. Talk to your blocker hand regarding the use of this medicine in children. This medicine is not approved for use in children. What side effects may I notice from receiving this medicine? Side effects that you should report to your doctor or health pulmonary care nurse as soon as possible: allergic reactions like skin rash, itching or hives, swelling of the face, lips, or tongue breathing problems confusion feeling faint or lightheaded, falls stomach pain yellowing of the eyes or skin Side effects that usually do not require medical attention (report to your doctor or health pulmonary care nurse if they continue or are bothersome): nausea, vomiting stomach upset What may interact with this medicine? alcohol antihistamines isoniazid medicines for depression, anxiety, or psychotic disturbances medicines for sleep muscle relaxants naltrexone narcotic medicines (opiates) for pain phenobarbital ritonavir tramadol What if I miss a dose? If you miss a dose, take it as soon as you can. If it is almost time for your next dose, take only that dose. Do not take double or extra doses. Where should I keep my medicine? Keep out of the reach of children. This medicine can be abused. Keep your medicine in a safe place to protect it from theft. Do not share this medicine with anyone. Selling or giving away this medicine is dangerous and against the law. Store at room temperature between 15 and 30 degrees C (59 and 86 degrees F). Protect from light. Keep container tightly closed. Throw away any unused medicine after the expiration date. Discard unused medicine and used packaging carefully. Pets and children can be harmed if they find used or lost packages. What should I tell my health care provider before I take this medicine? They need to know if you have any of these conditions: brain tumor Crohn's disease, inflammatory bowel disease, or ulcerative colitis drink more than 3 alcohol-containing drinks per day drug abuse or addiction head injury heart or circulation problems kidney disease or problems going to the bathroom liver disease lung disease, asthma, or breathing problems an unusual or allergic reaction to acetaminophen, hydrocodone, other opioid analgesics, other medicines, foods, dyes, or preservatives or trying to get breast-feeding What should I watch for while using this medicine? Tell your doctor or health pulmonary care nurse if your pain does not go away, if it gets worse, or if you have new or a different type of pain. You may develop tolerance to the medicine. Tolerance means that you will need a higher dose of the medicine for pain relief. Tolerance is normal and is expected if you take the medicine for a long time. Do not suddenly stop taking your medicine because you may develop a severe reaction. Your body becomes used to the medicine. This does NOT mean you are addicted. Addiction is a behavior related to getting and using a drug for a non-medical reason. If you have pain, you have a medical reason to take pain medicine. Your doctor will tell you how much medicine to take. If your doctor wants you to stop the medicine, the dose will be slowly lowered over time to avoid any side effects. You may get drowsy or dizzy when you first start taking the medicine or change doses. Do not drive, use machinery, or do anything that may be dangerous until you know how the medicine affects you. Stand or sit up slowly. There are different types of narcotic medicines (opiates) for pain. If you take more than one type at the same time, you may have more side effects. Give your health care provider a list of all medicines you use. Your doctor will tell you how much medicine to take. Do not take more medicine than directed. Call emergency for help if you have problems breathing. The medicine will cause constipation. Try to have a bowel movement at least every 2 to 3 days. If you do not have a bowel movement for 3 days, call your doctor or health pulmonary care nurse. Too much acetaminophen can be very dangerous. Do not take Tylenol (acetaminophen) or medicines that contain acetaminophen with this medicine. Many non-prescription medicines contain acetaminophen. Always read the labels carefully. You have been given the following additional information: Flank Pain, Uncertain Cause Ondansetron Oral disintegrating tablet Hydrocodone Bitartrate, Acetaminophen Oral tablet (Electronically signed by Janet Tijerina A.R.N.P. 01/21/2017 16:48)
--- NOTE | 2017-01-21 17:02 | ED DISCHARGE INSTRUCTIONS ---
Patient: CYNTHIA BOOGIE General Instructions [facility] VisitID: [id number] [address] [place] [address] 46y, F Registration Date/Time: 01/21/2017 Acute right flank pain INSTRUCTIONS Warnings: GENERAL WARNINGS: Return or contact your physician immediately if your condition worsens or changes unexpectedly, if not improving as expected, or if other problems arise. SPECIFICALLY, return if you develop pain in the abdomen or pelvis, fever, the inability to keep fluids down, blood in vomitus, blood in diarrhea, fainting or lightheadedness. Prescription Medications: Zofran 4 mg: Take 1 orally every six hours as needed for nausea/vomiting. Dispense ten (10). No refills. Substitution is permissible. [place] 5 mg / 325 mg tablets: take 1 orally every 6 hours. Dispense five (5). No refill. Follow-up: Follow up with your doctor tomorrow as scheduled even if well. Summary of care provided to patient and family. Understanding of the discharge instructions verbalized by patient. ADDITIONAL INFORMATION Flank Pain[Uncertain Cause] The flank is the area between the upper abdomen and the back. Pain here is often related to the kidneyan infection or a kidney stone. Other causes of flank pain include spinal arthritis, pinched nerve from a disk injury, back muscle strain or spasm. The cause of your flank pain is not certain and further tests may be needed. Home Care: You may use acetaminophen (Tylenol) or ibuprofen (Motrin, Advil) to control pain, unless another medicine was prescribed. [NOTE: If you have chronic liver or kidney disease or ever had a stomach ulcer or GI bleeding, talk with your doctor before using these medicines.] If the cause of your pain is coming from the muscles, ice or heat may give relief. During the first two days after injury, apply an ICE PACK to the painful area for 20 minutes every 2-4 hours. This will reduce swelling and pain. HEAT (hot shower, hot bath or heating pad) works well for muscle spasm. You can start with ice, then switch to heat after two days. Some patients feel best alternating ice and heat treatments. Use the one method that feels the best to you. Follow Up with your doctor or as advised by our staff for further evaluation if your symptoms are not improving over the next few days. Return Promptly or contact your doctor if any of the following occur: Repeated vomiting Fever of 100.4F (38C) or higher, or as directed by your healthcare provider Increasing flank pain Pain that spreads to the front of the abdomen Dizziness, weakness or fainting Blood in your urine Burning with urination or frequent urination Increasing pain in the leg Numbness or weakness in the leg Ondansetron Oral disintegrating tablet What is this medicine? ONDANSETRON (on NIKKIE se harpreet) is used to treat nausea and vomiting caused by chemotherapy. It is also used to prevent or treat nausea and vomiting after surgery. How should I use this medicine? These tablets are made to dissolve in the mouth. Do not try to push the tablet through the foil backing. With dry hands, peel away the foil backing and gently remove the tablet. Place the tablet in the mouth and allow it to dissolve, then swallow. While you may take these tablets with water, it is not necessary to do so. Talk to your hospitality associate regarding the use of this medicine in children. Special care may be needed. What side effects may I notice from receiving this medicine? Side effects that you should report to your doctor or health career development coordinator as soon as possible: allergic reactions like skin rash, itching or hives, swelling of the face, lips, or tongue breathing problems dizziness fast or irregular heartbeat feeling faint or lightheaded, falls fever and chills swelling of the hands and feet tightness in the chest Side effects that usually do not require medical attention (report to your doctor or health career development coordinator if they continue or are bothersome): constipation or diarrhea headache What may interact with this medicine? Do not take this medicine with any of the following medications: -apomorphine -cisapride -dofetilide -dronedarone -pimozide -thioridazine -ziprasidone This medicine may also interact with the following medications: -carbamazepine -phenytoin -rifampicin -tramadol -other medicines that prolong the QT interval (cause an abnormal heart rhythm) What if I miss a dose? If you miss a dose, take it as soon as you can. If it is almost time for your next dose, take only that dose. Do not take double or extra doses. Where should I keep my medicine? Keep out of the reach of children. Store between 2 and 30 degrees C (36 and 86 degrees F). Throw away any unused medicine after the expiration date. What should I tell my health care provider before I take this medicine? They need to know if you have any of these conditions: heart disease history of irregular heartbeat liver disease low levels of magnesium or potassium in the blood an unusual or allergic reaction to ondansetron, granisetron, other medicines, foods, dyes, or preservatives or trying to get breast-feeding What should I watch for while using this medicine? Check with your doctor or health career development coordinator as soon as you can if you have any sign of an allergic reaction. Hydrocodone Bitartrate, Acetaminophen Oral tablet What is this medicine? ACETAMINOPHEN; HYDROCODONE (a set a MORGAN jerome fen; glo droe KOE done) is a pain reliever. It is used to treat mild to moderate pain. How should I use this medicine? Take this medicine by mouth. Swallow it with a full glass of water. Follow the directions on the prescription label. If the medicine upsets your stomach, take the medicine with food or milk. Do not take more than you are told to take. Talk to your hospitality associate regarding the use of this medicine in children. This medicine is not approved for use in children. What side effects may I notice from receiving this medicine? Side effects that you should report to your doctor or health career development coordinator as soon as possible: allergic reactions like skin rash, itching or hives, swelling of the face, lips, or tongue breathing problems confusion feeling faint or lightheaded, falls stomach pain yellowing of the eyes or skin Side effects that usually do not require medical attention (report to your doctor or health career development coordinator if they continue or are bothersome): nausea, vomiting stomach upset What may interact with this medicine? alcohol antihistamines isoniazid medicines for depression, anxiety, or psychotic disturbances medicines for sleep muscle relaxants naltrexone narcotic medicines (opiates) for pain phenobarbital ritonavir tramadol What if I miss a dose? If you miss a dose, take it as soon as you can. If it is almost time for your next dose, take only that dose. Do not take double or extra doses. Where should I keep my medicine? Keep out of the reach of children. This medicine can be abused. Keep your medicine in a safe place to protect it from theft. Do not share this medicine with anyone. Selling or giving away this medicine is dangerous and against the law. Store at room temperature between 15 and 30 degrees C (59 and 86 degrees F). Protect from light. Keep container tightly closed. Throw away any unused medicine after the expiration date. Discard unused medicine and used packaging carefully. Pets and children can be harmed if they find used or lost packages. What should I tell my health care provider before I take this medicine? They need to know if you have any of these conditions: brain tumor Crohn's disease, inflammatory bowel disease, or ulcerative colitis drink more than 3 alcohol-containing drinks per day drug abuse or addiction head injury heart or circulation problems kidney disease or problems going to the bathroom liver disease lung disease, asthma, or breathing problems an unusual or allergic reaction to acetaminophen, hydrocodone, other opioid analgesics, other medicines, foods, dyes, or preservatives or trying to get breast-feeding What should I watch for while using this medicine? Tell your doctor or health career development coordinator if your pain does not go away, if it gets worse, or if you have new or a different type of pain. You may develop tolerance to the medicine. Tolerance means that you will need a higher dose of the medicine for pain relief. Tolerance is normal and is expected if you take the medicine for a long time. Do not suddenly stop taking your medicine because you may develop a severe reaction. Your body becomes used to the medicine. This does NOT mean you are addicted. Addiction is a behavior related to getting and using a drug for a non-medical reason. If you have pain, you have a medical reason to take pain medicine. Your doctor will tell you how much medicine to take. If your doctor wants you to stop the medicine, the dose will be slowly lowered over time to avoid any side effects. You may get drowsy or dizzy when you first start taking the medicine or change doses. Do not drive, use machinery, or do anything that may be dangerous until you know how the medicine affects you. Stand or sit up slowly. There are different types of narcotic medicines (opiates) for pain. If you take more than one type at the same time, you may have more side effects. Give your health care provider a list of all medicines you use. Your doctor will tell you how much medicine to take. Do not take more medicine than directed. Call emergency for help if you have problems breathing. The medicine will cause constipation. Try to have a bowel movement at least every 2 to 3 days. If you do not have a bowel movement for 3 days, call your doctor or health career development coordinator. Too much acetaminophen can be very dangerous. Do not take Tylenol (acetaminophen) or medicines that contain acetaminophen with this medicine. Many non-prescription medicines contain acetaminophen. Always read the labels carefully. You have been given the following additional information: Flank Pain, Uncertain Cause Ondansetron Oral disintegrating tablet Hydrocodone Bitartrate, Acetaminophen Oral tablet (Electronically signed by Janet Tijerina A.R.N.P. 01/21/2017 16:48)
--- NOTE | 2017-01-21 17:02 | ED MAR SUMMARY ---
..... Medication Administration Record [facility] [address] [place] [address] Patient: CYNTHIA BOOGIE Visit ID: [id number] 46y, F Weight: 75.7 kg Height/Length: 68.5 in BMI: 25 ALLERGIES: Benadryl, Codeine, Toradol, Reglan (gets more nauseated) Start 13:53 01/21/2017 Tayler Archer R.N., Stop 15:00 01/21/2017 Tayler Archer R.N. Medication Administered: IV NS (SALINE), Dose: IV Fluids over 1 minute(s), Rate: 1000 mL/hr, Dispensed: 1000 mL bag, Site: #1 forearm. Medication Ordered: IV NS : initial bolus 1000 mL (1000 mL/hr), then none - (NOW). Given 13:53 01/21/2017 Tayler Archer R.N. Medication Administered: ZOFRAN [IVP] (ONDANSETRON HCL), Dose: 4 mg IVP over 1 minute(s), Site: #1 forearm. Medication Ordered: Zofran IV 4 mg (NOW).
== END 2017-01-21 15:50 | disposition home or self-care (01) ==
LOC: ED SRH 12:37
DX: R10.31 Right lower quadrant pain (principal); F17.210 Nicotine dependence, cigarettes, uncomplicated; Z78.0 Asymptomatic menopausal state; Z88.5 Allergy status to narcotic agent; Z88.8 Allergy status to other drugs, medicaments and biological substances
CPT/HCPCS: 90004; 90047; 95059